=== PATIENT | female | born 1940 | race Caucasian/White ===

== ENCOUNTER 2022-08-17 09:46 | Day surgery (SDC) | payer MEDICARE ==
[~2022-08-17 09:46] MED LIST: Acetaminophen 325 MG Tab PO PRN; Acetaminophen/Codeine 300-30 MG Tab PO PRN; Cataract Ophth Solution EYELF ONE; Moxifloxacin 0.5% Ophth Soln 3 ML Bottle EYELF ONE; Ondansetron 4 MG/2 ML SDV IVPUSH PRN; Phenylephrine 10% Ophth Soln 5 ML Bot EYELF PRN; Povidone-Iodine 5% Sterile Ophth Soln 30 ML Bottle EYELF ONE; Proparacaine 0.5% Ophth Soln 15 ML Bottle EYELF ONE; Sodium Chloride 0.9% 10 ML Syringe FLUSH PRN; Timolol Maleate 0.5% Ophth Soln 5 ML Bottle EYELF ONE; Tropicamide 1% Ophth Soln 15 ML Bottle EYELF ONE
[2022-08-17] MEDS ORDERED: Dexamethasone 4 MG/ML SDV IVPUSH ONE (09:47)
[2022-08-17] MEDS ORDERED: Sodium Chloride 0.9% 10 ML Syringe IVPUSH ONE (09:47)
[2022-08-17] MEDS ORDERED: Midazolam 1 MG/ML 2 ML SDV IVPUSH ONE (09:47)
[2022-08-17] MEDS ORDERED: Proparacaine 0.5% Ophth Soln 15 ML Bottle EYELF ONE (10:28)
[2022-08-17] MEDS ORDERED: Povidone-Iodine 5% Sterile Ophth Soln 30 ML Bottle EYELF ONE (10:28)
[2022-08-17] MEDS ORDERED: Lidocaine 1% 30 ML SDV ONE (10:38)
[2022-08-17] MEDS ORDERED: Balanced Salt Solution Ophth Irrig 500 ML Bottle IOCULAR ONE (10:38)
[2022-08-17] MEDS ORDERED: Vancomycin 500 MG SDV EYELF ONE (10:39)
[2022-08-17] MEDS ORDERED: Chondroitin Sulfate/Hyaluronate Sodium Ophth Inj 0.75 ML Syringe EYELF ONE (10:39)
[2022-08-17] MEDS ORDERED: Apraclonidine 0.5% Ophth Soln 5 ML Bot EYELF ONE (10:42)
[2022-08-17] MEDS ORDERED: Diclofenac Sodium 0.1% Ophth Soln 5 ML Bottle EYELF ONE (10:43)
[2022-08-17] MEDS ORDERED: Dexamethasone/Neomycin/Polymyxin B Ophth Oint 3.5 GM Tube EYELF ONE (10:45)
== END 2022-08-17 11:50 | disposition home or self-care (01) ==
LOC: DL.SDS 09:46
PROVIDERS: ATTEND Ophthalmology
DX: H25.812 Combined forms of age-related cataract, left eye (principal); I25.10 Atherosclerotic heart disease of native coronary artery without angina pectoris; I11.0 Hypertensive heart disease with heart failure; I50.9 Heart failure, unspecified; I25.2 Old myocardial infarction; Z79.82 Long term (current) use of aspirin; Z79.899 Other long term (current) drug therapy
CPT/HCPCS: 00142; A9270-GY; J1100; J2250; J3370; J3490; V2632